=== PATIENT | female | born 1975 | race Hispanic/Latino ===

== ENCOUNTER 2019-08-22 15:37 | Emergency (ER) | payer BC, OTHER ==
[2019-08-22 16:23] LABS: Absolute Lymphocytes (CBC) 1.5 K/uL (0.7-4.9); Basophils % 0.8 % (0-1.3); Hematocrit 41.8 % (36.0-45.0); Lymphocytes % 16.1 % (15.3-44.8); MPV 7.9 fL (7.6-11.3); RBC Red Blood Cell Count 4.56 M/uL (3.86-4.86)
[2019-08-22 16:29] LABS: Albumin 4.1 g/dL (3.4-5.0); Bilirubin Direct 0.1 mg/dL (0-0.2); Bilirubin Total 0.4 mg/dL (0.2-1.0); Potassium 3.2 mmol/L (3.5-5.1); Protein, Total 8.3 g/dL (6.4-8.2)
[2019-08-22 16:40] LABS: Urine Blood 1+ (NEG); Urine Glucose NEGATIVE (NEG); Urine Protein NEGATIVE (NEG)
--- NOTE | 2019-08-22 16:57 | RAD REPORT ---
EXAM DESCRIPTION: CT - Stone Protocol - 08/22/2019 4:31 pm CLINICAL HISTORY: FLANK PAIN COMPARISON: Abdomen Pelvis W Contrast dated 04/19/2016 TECHNIQUE: Axial 5 mm thick images were obtained without oral or IV contrast. The [id number] span s the entirety of the system including uppermost abdomen and lung bases. All CT scans are performed using dose optimization technique as appropriate and may include automated exposure control or mA/KV adjustment according to patient size. FINDINGS: Moderate right-sided hydronephrosis is present. The patient has an obstructing 8 mm right UVJ calculus. Within the dilated right ureter in the right mid pelvis there is a cluster of 4 calcifi cations ranging from 2-5 mm in size. These are approximately 5 cm from the UVJ. No left-sided hydrone phrosis. Patient has numerous bilateral calyx and pyramid calcifications 2-6 mm in size. No suspiciou s renal masses. Isodense masses and pyelonephritis are not excluded on a stone protocol CT scan. No s ignificant adrenal finding. No urinary bladder suspicious finding. Uterus is absent. Ovaries are abse nt or obscured by abutting isodense small bowel loops. Imaged portions of the liver, spleen and pancreas show no suspicious findings on non-contrast imaging . No gallbladder or biliary tree abnormality identified. No suspicious bowel findings. No acute GI process identified. No appendicitis findings. No mass or bulky lymphadenopathy. Patient has a 2.6 centimeter supraumbilical fat only hernia with a 12 millimeter neck. No free air, free fluid or inflammatory stranding. No significant bony abnormality. IMPRESSION: Right hydronephrosis up to moderate in severity secondary to an 8 mm obstructing calculu s at the UVJ. Patient also has a cluster of 4 calcifications in the distal right ureter ranging 2-5 m m in size. These are approximately 5 cm from the UVJ. Patient has additional numerous calyx and pyramid calculi 2-6 mm in size in both kidneys. Isodense masses and pyelonephritis are not excluded on stone protocol technique.
[2019-08-22] MEDS ORDERED: TAMSULOSIN 0.4 MG SR CAP ONE (17:11)
[2019-08-22] MEDS ORDERED: Magnesium Sulfate 2gm IVPB 2 G/50 ML BAG IV ONE (17:11)
[2019-08-22] MEDS ORDERED: KETOROLAC 30 MG/ML INJ ONE (17:11)
[2019-08-22] MEDS ORDERED: POTASSIUM CL SA 10 MEQ TAB PO ONE (17:11)
--- NOTE | 2019-08-22 17:33 | ER ---
Nurse's Notes [facility] Name: Minda Monsalve Age: 44 yrs Sex: Female : 1975 Arrival Date: 08/22/2019 Time: 15:38 Bed 14 Private MD: Diagnosis: Calculus of kidney and ureter Presentation: 08/21 16:00 Chief complaint: Patient states: Right flank pain x 1 week, reports N/V. Denies fever, jl7 cough, SOB. Coronavirus screen: Proceed with normal triage. Patient denies a cough. Patient denies shortness of breath or difficulty breathing. Patient denies measured and/or subjective temperature greater than 100.4F prior to today's visit. Patient denies travel on a cruise ship or to a country the [facility] currently lists as an affected area. Patient denies contact with known and/or suspected case of COVID-19. Ebola Screen: No symptoms or risks identified at this time. Initial Sepsis Screen: Does the patient meet any 2 criteria? No. Patient's initial sepsis screen is negative. Does the patient have a suspected source of infection? No. Patient's initial sepsis screen is negative. Risk Assessment: Do you want to hurt yourself or someone else? Patient reports no desire to harm self or others. Onset of symptoms was August 15, 2019. 16:00 Method Of Arrival: Ambulatory jl7 16:00 Acuity: JACINTO 3 jl7 Triage Assessment: 16:19 General: Appears in no apparent distress. uncomfortable, Behavior is calm, cooperative, jl7 appropriate for age. Pain: Complains of pain in right flank Pain radiates to right lower quadrant Pain currently is 0 out of 10 on a pain scale. at worst was 10 out of 10 on a pain scale. Pain began x 1 week. Neuro: Level of Consciousness is awake, alert, obeys commands, Oriented to person, place, time, situation. Cardiovascular: Patient's skin is warm and dry. Respiratory: Airway is patent Respiratory effort is even, unlabored, Respiratory pattern is regular, symmetrical. GI: Reports nausea, vomiting. : Reports pain in right flank(s). Derm: Skin is pink, warm \T\ dry. 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 - Social history:: Smoking status: Patient denies any tobacco usage or history of. Screenin:23 Abuse screen: Denies threats or abuse. Denies injuries from another. Nutritional jl7 screening: No deficits noted. Tuberculosis screening: No symptoms or risk factors identified. Fall Risk IV access (20 points). Total Covarrubias Fall Scale indicates No Risk (0-24 pts). Assessment: 16:23 General: See triage assessment. jl7 17:18 Reassessment: Patient appears in no apparent distress at this time. No changes from 7 previously documented assessment. Patient and/or family updated on plan of care and expected duration. Pain level reassessed. Patient is alert, oriented x 3, equal unlabored respirations, skin warm/dry/pink. 17:30 Reassessment: Pt will be discharged once medication is done infusing. jl7 Vital Signs: 16:00 BP 146 / 92; Pulse 69; Resp 17 S; Pulse Ox 100% on R/A; Weight 71.67 kg (R); Height 5 jl7 ft. 3 in. (160.02 cm) (R); Pain 0/10; 17:18 BP 140 / 91; Pulse 69; Resp 16; Pulse Ox 100% ; jl7 16:00 Body Mass Index 27.99 (71.67 kg, 160.02 cm) jl7 ED Course: 15:38 Patient arrived in ED. fj1 15:41 Sil De La Rosa FNP-C is PHCP. kb 15:41 Bruce Garcia MD is Attending Physician. kb 16:10 Initial lab(s) drawn, by nv, sent to lab. Inserted saline lock: 20 gauge in left jl7 antecubital area, using aseptic technique. Blood collected. 16:14 Clarita Millard, STEPHIE is Primary Nurse. jl7 16:18 Triage completed. jl7 16:19 Arm band placed on right wrist. jl7 16:23 Patient has correct armband on for positive identification. Placed in gown. Bed in low jl7 position. Call light in reach. Side rails up X 1. Pulse ox on. NIBP on. Warm blanket given. 16:31 CT Stone Protocol In Process Unspecified. EDMS 17:33 Cindy Adame MD is Referral Physician. kb 18:23 No provider procedures requiring assistance completed. IV discontinued, intact, jl7 bleeding controlled, No redness/swelling at site. Pressure dressing applied. Administered Medications: 17:15 Drug: TORadol - Ketorolac 15 mg Route: IVP; Site: left antecubital; jl7 17:45 Follow up: Response: No adverse reaction; Pain is decreased jl7 17:16 Drug: Potassium Chloride 40 mEq Route: PO; jl7 18:00 Follow up: Response: No adverse reaction jl7 17:17 Drug: Magnesium Sulfate 2 grams Route: IVPB; Infused Over: 1 hrs; Site: left [facility] er antecubital; 18:17 Follow up: Response: No adverse reaction; IV Status: Completed infusion jl7 17:17 Drug: Flomax 0.4 mg Route: PO; jl7 18:00 Follow up: Response: No adverse reaction jl Outcome: 17:33 Discharge ordered by MD. kb 18:23 Discharged to home ambulatory. jl7 18:23 Condition: stable 18:23 Discharge instructions given to patient, family, Instructed on discharge instructions, follow up and referral plans. medication usage, Demonstrated understanding of instructions, follow-up care, medications, Prescriptions given X 3. 18:24 Patient left the ED. jl7 Signatures: Dispatcher [employer] EDMS Sil De La Rosa, Clarita Grayson RN RN jl7 Tom Chavez fj1
--- NOTE | 2019-08-22 17:33 | EDPHYS ---
Physician Documentation [facility] Name: Minda Monsalve Age: 44 yrs Sex: Female : 1975 Arrival Date: 08/22/2019 Time: 15:38 Bed 14 Private MD: ED Physician Bruce Garcia HPI: 08/21 16:41 This 44 yrs old Female presents to ER via Ambulatory with complaints of kb Possible Kidney Stone. 16:42 The patient complains of pain in the right flank. The pain does not radiate. Onset: The kb symptoms/episode began/occurred 1 week(s) ago. Modifying factors: The symptoms are alleviated by nothing. the symptoms are aggravated by nothing. Associated signs and symptoms: Pertinent positives: dysuria. Severity of pain: At its worst the pain was moderate in the emergency department the pain is unchanged. The patient has not experienced similar symptoms in the past. The patient has not recently seen a physician. Pt states "I've been dealing with kidney stones for a week.". 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 - Social history:: Smoking status: Patient denies any tobacco usage or history of. ROS: 16:38 Constitutional: Negative for fever, chills, and weight loss, Cardiovascular: Negative kb for chest pain, palpitations, and edema, Respiratory: Negative for shortness of breath, cough, wheezing, and pleuritic chest pain, MS/Extremity: Negative for injury and deformity, Skin: Negative for injury, rash, and discoloration, Neuro: Negative for headache, weakness, numbness, tingling, and seizure. 16:38 Abdomen/GI: Positive for abdominal pain, Negative for nausea, vomiting, and diarrhea, constipation. 16:38 : Positive for urinary symptoms, flank pain, burning with urination. Exam: 16:38 Constitutional: This is a well developed, well nourished patient who is awake, alert, kb and in no acute distress. Head/Face: Normocephalic, atraumatic. Neck: Trachea midline, no thyromegaly or masses palpated, and no cervical lymphadenopathy. Supple, full range of motion without nuchal rigidity, or vertebral point tenderness. No Meningismus. Chest/axilla: Normal chest wall appearance and motion. Nontender with no deformity. No lesions are appreciated. Cardiovascular: Regular rate and rhythm with a normal S1 and S2. No gallops, murmurs, or rubs. Normal PMI, no JVD. No pulse deficits. Respiratory: Lungs have equal breath sounds bilaterally, clear to auscultation and percussion. No rales, rhonchi or wheezes noted. No increased work of breathing, no retractions or nasal flaring. Skin: Warm, dry with normal turgor. Normal color with no rashes, no lesions, and no evidence of cellulitis. MS/ Extremity: Pulses equal, no cyanosis. Neurovascular intact. Full, normal range of motion. Neuro: Awake and alert, GCS 15, oriented to person, place, time, and situation. Cranial nerves II-XII grossly intact. Motor strength 5/5 in all extremities. Sensory grossly intact. Cerebellar exam normal. Normal gait. 16:38 Abdomen/GI: Inspection: abdomen appears normal, Bowel sounds: normal, in all quadrants, Palpation: soft, in all quadrants, moderate abdominal tenderness, in the suprapubic area, right upper quadrant and right lower quadrant. 16:38 Back: CVA tenderness, that is mild, is noted on the right. Vital Signs: 16:00 BP 146 / 92; Pulse 69; Resp 17 S; Pulse Ox 100% on R/A; Weight 71.67 kg (R); Height 5 jl7 ft. 3 in. (160.02 cm) (R); Pain 0/10; 17:18 BP 140 / 91; Pulse 69; Resp 16; Pulse Ox 100% ; jl7 16:00 Body Mass Index 27.99 (71.67 kg, 160.02 cm) jl7 MDM: 15:49 Patient medically screened. kb 16:37 Data reviewed: vital signs, nurses notes. Data interpreted: Pulse oximetry: on room air kb is 100 %. Interpretation: normal. 17:24 Counseling: I had a detailed discussion with the patient and/or guardian regarding: the kb historical points, exam findings, and any diagnostic results supporting the discharge/admit diagnosis, lab results, radiology results, the need for outpatient follow up, a urologist, to return to the emergency department if symptoms worsen or persist or if there are any questions or concerns that arise at home. ED course: Pt's pain is controlled at this time. Pt has hydrocodone to take at home for pain. Pt was also prescribed flomax at the start of the symptoms so I instructed her to continue that and to call Dr Adame's office tomorrow to schedule a follow up appt. Pt to return for worsening pain or concerns. Verbal understanding of all instructions received. Pt in agreement with plan of care. 08/21 15:57 Order name: Basic Metabolic Panel; Complete Time: 16:33 kb 08/21 15:57 Order name: CBC with Diff; Complete Time: 16:29 kb 08/21 15:57 Order name: Hepatic Function; Complete Time: 16:33 kb 08/21 15:57 Order name: Lipase; Complete Time: 16:33 kb 08/21 16:11 Order name: Urine Dipstick--Ancillary (enter results); Complete Time: 16:43 bd 08/21 16:11 Order name: Urine --Ancillary (enter results); Complete Time: 16:43 bd 08/21 15:57 Order name: IV Saline Lock; Complete Time: 16:24 kb 08/21 15:57 Order name: Labs collected and sent; Complete Time: 16:24 kb 08/21 15:57 Order name: Urine Dipstick-Ancillary (obtain specimen); Complete Time: 16:24 kb 08/21 15:57 Order name: CT Stone Protocol; Complete Time: 16:59 kb Administered Medications: 17:15 Drug: TORadol - Ketorolac 15 mg Route: IVP; Site: left antecubital; jl7 17:45 Follow up: Response: No adverse reaction; Pain is decreased jl7 17:16 Drug: Potassium Chloride 40 mEq Route: PO; jl7 18:00 Follow up: Response: No adverse reaction 7 17:17 Drug: Magnesium Sulfate 2 grams Route: IVPB; Infused Over: 1 hrs; Site: left jl7 antecubital; 18:17 Follow up: Response: No adverse reaction; IV Status: Completed infusion 7 17:17 Drug: Flomax 0.4 mg Route: PO; jl7 18:00 Follow up: Response: No adverse reaction jl7 Disposition: 08/22 13:58 Co-signature as Attending Physician, Bruce Garcia MD I agree with the assessment and laisha plan of care. Disposition: 08/22/19 17:33 Discharged to Home. Impression: Calculus of kidney and ureter. - Condition is Stable. - Discharge Instructions: Kidney Stones, [id number], Dietary Guidelines to Help Prevent Kidney Stones. - Prescriptions for Zofran 4 mg Oral Tablet - take 1 tablet by ORAL route every 6 hours As needed; 20 tablet. Diclofenac Sodium 75 mg Oral Tablet, Delayed Release (E.C.) - take 1 tablet by ORAL route 2 times per day As needed; 30 tablet. Macrobid 100 mg Oral Capsule - take 1 capsule by ORAL route every 12 hours for 7 days; 14 capsule. - Medication Reconciliation Form, Thank You Letter, Antibiotic Education, Prescription Opioid Use form. - Follow up: Emergency Department; When: As needed; Reason: Worsening of condition. Follow up: Cindy Adame MD; When: Tomorrow; Reason: Recheck today's complaints, Continuance of care, Re-evaluation by your physician. Signatures: Dispatcher [employer] EDMS Sil De La Rosa, MONOTYPE KEYBOARD OPERATOR-C MONOTYPE KEYBOARD OPERATOR-Bruce Alfonso MD MD cha Leal, Jahala, RN RN jl7 Corrections: (The following items were deleted from the chart) 08/21 18:24 17:33 08/22/2019 17:33 Discharged to Home. Impression: Calculus of kidney and ureter. jl7 Condition is Stable. Forms are Medication Reconciliation Form, Thank You Letter, Antibiotic Education, Prescription Opioid Use. Follow up: Emergency Department; When: As needed; Reason: Worsening of condition. Follow up: Cindy Adame; When: Tomorrow; Reason: Recheck today's complaints, Continuance of care, Re-evaluation by your physician. kb
[2019-08-22 18:37] VITALS: O2SAT 100
[2019-08-22 18:42] VITALS: BP 140/91
== END 2019-08-22 18:24 | disposition home or self-care (01) ==
LOC: ER 15:37
DX: N20.2 Calculus of kidney with calculus of ureter (principal); G40.909 Epilepsy, unspecified, not intractable, without status epilepticus; Z88.5 Allergy status to narcotic agent
CPT/HCPCS: 85025; 80048; 36415; 81025; 80076; 81003; 83690; 76377; 74176; J3475; 96365; 96375; 99284

== ENCOUNTER 2021-02-09 21:13 | Emergency (ER) | payer OTHER, SELFPAY ==
[2021-02-09 21:39] LABS: Urine Blood 1+ (Negative); Urine Glucose Negative (Negative); Urine Protein Negative (Negative); Urine Specific Gravity 1.025 (1.005-1.030)
[2021-02-09 22:20] LABS: Absolute Lymphocytes (CBC) 1.4 K/uL (0.7-4.9); Basophils % 0.9 % (0-1.3); Lymphocytes % 20.1 % (15.3-44.8); MPV 7.6 fL (7.6-11.3); RBC Red Blood Cell Count 4.63 M/uL (3.86-4.86)
[2021-02-09] MEDS ORDERED: MORPHINE 4 MG/ML SYR ONE (22:24)
[2021-02-09] MEDS ORDERED: NA CHLORIDE 0.9% 1,000 ML ONE (22:25)
[2021-02-09] MEDS ORDERED: ONDANSETRON 4 MG/2 ML VIAL ONE (22:25)
[2021-02-09 22:45] LABS: Urine Bacteria >50 /HPF (<20); Urine Mucus 1+ /HPF (NONE SEEN)
[2021-02-09 22:47] LABS: ALT/SGPT 25 U/L (12-78); AST/SGOT 10 U/L (15-37); Albumin 4.2 g/dL (3.4-5.0); Alkaline Phosphatase 83 U/L (45-117); BUN Blood Urea Nitrogen 10 mg/dL (7-18); Bicarbonate 26 mmol/L (21-32); Bilirubin Direct < 0.1 mg/dL (0-0.2); Bilirubin Total 0.3 mg/dL (0.2-1.0); Glucose Level 109 mg/dL (74-106); Lipase 243 U/L (73-393); Potassium 3.4 mmol/L (3.5-5.1); Protein, Total 7.7 g/dL (6.4-8.2); Sodium Level 142 mmol/L (136-145)
[2021-02-09 23:18] LABS: Urine Blood 1+ (Negative); Urine Glucose NEGATIVE (Negative); Urine Protein NEGATIVE (Negative); Urine Specific Gravity 1.025 (1.005-1.030)
[2021-02-09] MEDS ORDERED: CEFTRIAXONE 1000 MG/VIAL ONE (23:31)
[2021-02-10] MEDS ORDERED: Magnesium Sulfate 2gm IVPB 2 G/50 ML BAG IV ONE (01:03)
[2021-02-10] MEDS ORDERED: POTASSIUM 25 MEQ EFFERV TAB ONE (01:03)
[2021-02-10] MEDS ORDERED: TAMSULOSIN 0.4 MG SR CAP ONE (01:03)
--- NOTE | 2021-02-10 01:38 | EDPHYS ---
Physician Documentation [facility] Name: Minda Monsalve Age: 45 yrs Sex: Female : 1975 Arrival Date: 02/09/2021 Time: 21:17 Bed 16 Private MD: ED Physician Moris Angeles HPI: 02/09 21:50 This 45 yrs old Female presents to ER via Ambulatory with complaints of cp Vomiting, Possible Kidney Stone. 21:50 The patient presents to the emergency department with nausea, that is moderate. Onset: cp The symptoms/episode began/occurred today. Possible causes: kidney stone. Associated signs and symptoms: Pertinent positives: abdominal pain, Pertinent negatives: constipation, diarrhea, fever. Severity of symptoms: in the emergency department the symptoms are unchanged despite home interventions. 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 - Social history:: Smoking status: Patient denies any tobacco usage or history of. ROS: 21:55 Constitutional: Negative for body aches, chills, fever. cp 21:55 Eyes: Negative for injury, pain, redness, and discharge. cp 21:55 Cardiovascular: Negative for chest pain. 21:55 Respiratory: Negative for cough, shortness of breath, wheezing. 21:55 Abdomen/GI: Positive for abdominal pain, nausea, Negative for diarrhea, constipation, active vomiting. 21:55 Back: Positive for radiated pain, of the right low back. 21:55 Skin: Negative for rash. 21:55 Neuro: Negative for altered mental status, headache, weakness. 21:55 All other systems are negative. Exam: 22:00 Constitutional: The patient appears in no acute distress, alert, awake, non-toxic, well cp developed, well nourished, uncomfortable. 22:00 Head/Face: Normocephalic, atraumatic. cp 22:00 Eyes: Periorbital structures: appear normal, Conjunctiva: normal, no exudate, no injection, Sclera: no appreciated abnormality, Lids and lashes: appear normal, bilaterally. 22:00 ENT: External ear(s): are unremarkable, Nose: is normal, Mouth: Lips: moist, Oral mucosa: moist, Posterior pharynx: Airway: no evidence of obstruction, patent. 22:00 Chest/axilla: Inspection: normal. 22:00 Cardiovascular: Rate: normal. 22:00 Respiratory: the patient does not display signs of respiratory distress, Respirations: normal, no use of accessory muscles, no retractions, labored breathing, is not present. 22:00 Abdomen/GI: Inspection: abdomen appears normal, Bowel sounds: active, all quadrants, Palpation: soft, in all quadrants, moderate abdominal tenderness, in the posterior aspect of right lateral abdomen, anterior aspect of right lateral abdomen and right lower quadrant, rebound tenderness, is not appreciated, involuntary guarding, is not appreciated. 22:00 Back: pain, that is moderate, of the right low back. 22:00 Skin: no rash present. Vital Signs: 21:30 BP 147 / 91; Pulse 77; Resp 18; Temp 97.3; Pulse Ox 100% on R/A; Weight 74.84 kg (R); lp1 Height 5 ft. 3 in. (160.02 cm); Pain 10/10; 02/10 01:10 BP 112 / 76; Pulse 70; Resp 18; Temp 98.8(O); Pulse Ox 100% ; Pain 2/10; kc4 03:10 BP 120 / 72; Pulse 72; Resp 18; Temp 98.2(O); Pulse Ox 100% on R/A; Pain 0/10; kc4 02/09 21:30 Body Mass Index 29.23 (74.84 kg, 160.02 cm) lp1 [place] Coma Score: 01:11 Eye Response: spontaneous(4). Verbal Response: oriented(5). Motor Response: obeys kc4 commands(6). Total: 15. MDM: 02/09 21:36 Patient medically screened. cp 22:00 Differential diagnosis: gastritis, appendicitis, uti, kidney stone, pyelonephritis. cp 02/10 01:37 Data reviewed: vital signs, nurses notes, lab test result(s), radiologic studies, CT cp scan. 01:37 Counseling: I had a detailed discussion with the patient and/or guardian regarding: the cp historical points, exam findings, and any diagnostic results supporting the discharge/admit diagnosis, lab results, radiology results, to return to the emergency department if symptoms worsen or persist or if there are any questions or concerns that arise at home. Response to treatment: the patient's symptoms have markedly improved after treatment, Pain markedly improved and patient observed resting comfortably. 02/09 21:39 Order name: Urine Dipstick-Ancillary; Complete Time: 21:52 EDKY 02/09 22:51 Interpretation: Normal except: UBLD 1+; UESTR Trace. cp 02/09 21:39 Order name: Urine Microscopic Only; Complete Time: 22:51 lp1 02/09 22:51 Interpretation: Normal except: UWBC >50; URBC 5-10; UBACT >50. cp 02/09 21:40 Order name: Urine Dipstick--Ancillary (enter results); Complete Time: 00:04 lp1 02/09 21:54 Order name: Basic Metabolic Panel; Complete Time: 22:51 cp 02/09 22:52 Interpretation: Normal except: K 3.4; CL 110; GLUC 109; GFR 82. cp 02/09 21:54 Order name: CBC with Diff; Complete Time: 22:51 cp 02/09 22:52 Interpretation: Reviewed. 02/09 21:54 Order name: Hepatic Function; Complete Time: 22:51 cp 02/09 22:52 Interpretation: Normal except: AST 10. cp 02/09 21:54 Order name: Lipase; Complete Time: 22:51 cp 02/09 21:54 Order name: CT Stone Protocol 02/09 22:45 Order name: Urine Culture EDKY 02/09 21:39 Order name: Urine Dipstick-Ancillary (obtain specimen); Complete Time: 21:40 lp1 02/09 21:54 Order name: IV Saline Lock; Complete Time: 00:48 cp 02/09 21:54 Order name: Labs collected and sent; Complete Time: 00:48 cp Administered Medications: 02/09 22:06 Drug: NS 0.9% 1000 ml Route: IV; Rate: 1000 ml/hr; Site: left antecubital; 4 02/10 03:15 Follow up: IV Status: Completed infusion 4 02/09 22:06 Drug: Zofran (Ondansetron) 4 mg Route: IVP; Site: left antecubital; kc4 22:06 Drug: morphine 4 mg Route: IVP; Site: left antecubital; kc4 23:07 Drug: Rocephin (cefTRIAXone) 1 grams Route: IV; Rate: calculated rate; Site: left kc4 antecubital; 02/10 00:39 Drug: Magnesium Sulfate 1 grams Route: IVPB; Infused Over: 1 hrs; Site: left kc4 antecubital; 01:13 Follow up: Response: No adverse reaction; IV Status: Completed infusion kc4 00:40 Drug: Flomax (tamsulosin) 0.4 mg Route: PO; kc4 01:13 Follow up: Response: No adverse reaction kc4 00:40 Drug: Potassium Effervescent Tablet 50 mEq Route: PO; kc4 01:13 Follow up: Response: No adverse reaction kc4 Disposition: 02/11 01:34 Co-signature as Attending Physician, Moris Angeles MD. mh7 Disposition Summary: 02/10/21 01:38 Discharge Ordered Location: Home cp Problem: new cp Symptoms: have improved cp Condition: Stable cp Diagnosis - Calculus of kidney with calculus of ureter - Right cp Followup: cp - With: Chay Horner MD - When: 2 - 3 days - Reason: pain continues Discharge Instructions: - Discharge Summary Sheet cp - Kidney Stones cp - Renal Colic cp Forms: - Medication Reconciliation Form cp - Thank You Letter cp - Antibiotic Education cp - Prescription Opioid Use cp Prescriptions: - Flomax 0.4 mg Oral capsule - take 1 capsule by ORAL route once daily 1/2 hour following the same meal each cp day; 5 capsule; Refills: 0, Product Selection Permitted - Zofran 4 mg Oral Tablet - take 1 tablet by ORAL route every 12 hours As needed; 20 tablet; Refills: 0, cp Product Selection Permitted - Cipro 500 mg Oral Tablet - take 1 tablet by ORAL route every 12 hours for 7 days; 14 tablet; Refills: 0, cp Product Selection Permitted - Tramadol 50 mg Oral Tablet - take 1 tablet by ORAL route every 8 hours as needed; 12 tablet; Refills: 0, cp Product Selection Permitted Signatures: Dispatcher [facility] Daksha Ricardo RN RN lp1 rBuce Samson PA PA cp Moris Angeles MD MD 7 Mayuri Kruse 4
--- NOTE | 2021-02-10 01:38 | ER ---
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 Coronavirus screen: At this time, the client does not indicate any symptoms associated with coronavirus-19. Ebola Screen: No symptoms or risks identified at this time. Initial Sepsis Screen: Does the patient meet any 2 criteria? No. Patient's initial sepsis screen is negative. Does the patient have a suspected source of infection? No. Patient's initial sepsis screen is negative. Risk Assessment: Do you want to hurt yourself or someone else? Patient reports no desire to harm self or others. Onset of symptoms was February 09, 2021 at 19:00. 21:30 Method Of Arrival: Ambulatory lp1 21:30 Acuity: JACINTO 3 lp1 Triage Assessment: 23:30 GI: Bowel sounds present X 4 quads. Abd is soft Reports lower abdominal pain, upper kc4 abdominal pain, intolerance of fluids, intolerance of food, nausea, Pain is 8 out of 10 on a pain scale. vomiting. 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 - Social history:: Smoking status: Patient denies any tobacco usage or history of. Screenin:32 Abuse screen: Denies threats or abuse. Denies injuries from another. Nutritional lp1 screening: No deficits noted. Tuberculosis screening: No symptoms or risk factors identified. Fall Risk None identified. Assessment: 02/10 01:08 General: Appears in no apparent distress. Behavior is calm, cooperative, appropriate kc4 for age. Pain: Complains of pain in abdomen Pain does not radiate. Pain currently is 4 out of 10 on a pain scale. at worst was 8 out of 10 on a pain scale. level that patient reports is acceptable is 2 out of 10 on a pain scale. Quality of pain is described as piercing, Pain began 4 hours ago. Is intermittent, Alleviated by medications. Neuro: No deficits noted. Cardiovascular: No deficits noted. Respiratory: No deficits noted. GI: Abdomen is round Bowel sounds present X 4 quads. Abd is soft X 4 quads. : No deficits noted. EENT: No deficits noted. Derm: No deficits noted. Musculoskeletal: No deficits noted. No signs and/or symptoms reported regarding the musculoskeletal system. Vital Signs: 02/09 21:30 BP 147 / 91; Pulse 77; Resp 18; Temp 97.3; Pulse Ox 100% on R/A; Weight 74.84 kg (R); lp1 Height 5 ft. 3 in. (160.02 cm); Pain 10/10; 02/10 01:10 BP 112 / 76; Pulse 70; Resp 18; Temp 98.8(O); Pulse Ox 100% ; Pain 2/10; kc4 03:10 BP 120 / 72; Pulse 72; Resp 18; Temp 98.2(O); Pulse Ox 100% on R/A; Pain 0/10; kc4 02/09 21:30 Body Mass Index 29.23 (74.84 kg, 160.02 cm) lp1 Unruly Coma Score: 01:11 Eye Response: spontaneous(4). Verbal Response: oriented(5). Motor Response: obeys kc4 commands(6). Total: 15. ED Course: 02/09 21:17 Patient arrived in ED. bp1 21:30 Bruce Samson PA is PHCP. cp 21:30 Moris Angeles MD is Attending Physician. cp 21:31 Triage completed. lp1 21:31 Arm band placed on. lp1 21:51 Mayuri Kruse is Primary Nurse. kc4 22:00 No provider procedures requiring assistance completed. Inserted saline lock: 20 gauge kc4 in left antecubital area, using aseptic technique. 22:19 Basic Metabolic Panel Sent. kc4 22:19 CBC with Diff Sent. kc4 22:19 Hepatic Function Sent. kc4 22:19 Lipase Sent. kc4 22:19 Urine Dipstick--Ancillary (enter results) Sent. kc4 22:19 Urine Microscopic Only Sent. kc4 22:56 CT Stone Protocol In Process Unspecified. EDMS 02/10 01:11 Patient has correct armband on for positive identification. Placed in gown. Bed in low kc4 position. Call light in reach. Side rails up X 1. 01:37 Chay Horner MD is Referral Physician. cp 03:14 IV discontinued, intact, bleeding controlled, No redness/swelling at site. Pressure kc4 dressing applied. Administered Medications: 02/09 22:06 Drug: NS 0.9% 1000 ml Route: IV; Rate: 1000 ml/hr; Site: left antecubital; kc4 02/10 03:15 Follow up: IV Status: Completed infusion kc4 02/09 22:06 Drug: Zofran (Ondansetron) 4 mg Route: IVP; Site: left antecubital; kc4 22:06 Drug: morphine 4 mg Route: IVP; Site: left antecubital; kc4 23:07 Drug: Rocephin (cefTRIAXone) 1 grams Route: IV; Rate: calculated rate; Site: left 4 antecubital; 02/10 00:39 Drug: Magnesium Sulfate 1 grams Route: IVPB; Infused Over: 1 hrs; Site: left 4 antecubital; 01:13 Follow up: Response: No adverse reaction; IV Status: Completed infusion kc4 00:40 Drug: Flomax (tamsulosin) 0.4 mg Route: PO; kc4 01:13 Follow up: Response: No adverse reaction kc4 00:40 Drug: Potassium Effervescent Tablet 50 mEq Route: PO; kc4 01:13 Follow up: Response: No adverse reaction kc4 Outcome: 01:38 Discharge ordered by MD. cp 03:11 Discharged to home ambulatory. kc4 03:11 Condition: improved 03:11 Discharge instructions given to patient, Instructed on discharge instructions, follow up and referral plans. medication usage, Demonstrated understanding of instructions, follow-up care, medications, Prescriptions given X 4. 03:15 Patient left the ED. kc4 Signatures: [facility] Daksha Epps RN RN lp1 Bruce Samson PA PA cp [place], Brittany bp1 Chuman, Kourtney kc4
[2021-02-10 03:38] VITALS: O2SAT 100
[2021-02-10 03:41] VITALS: BP 120/72; TEMP 98.2
--- NOTE | 2021-02-11 12:05 | RAD REPORT ---
EXAM DESCRIPTION: CT - Stone Protocol - 02/10/2021 6:01 am CLINICAL HISTORY: 45 years Female FLANK PAIN TECHNIQUE: Contiguous axial images obtained through the abdomen and pelvis without IV contrast. Mia nal and sagittal reformatted images provided. This CT exam was performed according to our departmental dose-optimization program, which includes on e or more of the following dose reduction techniques: automated exposure control, adjustment of the m A and/or kV according to patient size, and/or use of iterative reconstruction technique. COMPARISON: 08/22/2019 FINDINGS: Again seen is bilateral nephrolithiasis, with stones measuring up to 6 mm on the right and 7 mm on the left. There is moderate right hydroureteronephrosis due to a 5 x 7 mm calculus at the ri ght vesicoureteral junction. More proximally, there is a 5 mm calculus within or adjacent to the post erior margin of the right distal ureter. No other ureteral or bladder calculi. No left-sided hydronep hrosis. Minimal bibasilar atelectasis. The unenhanced liver, biliary tree, gallbladder, pancreas, spleen, and adrenal glands are normal. Prior hysterectomy. There is no bowel inflammation, obstruction, free intraperitoneal air, or ascites. The appendix is no rmal. There are no aggressive osseous lesions. Small fat-containing supraumbilical and umbilical hernias ar e stable and do not appear inflamed. IMPRESSION: Bilateral nephrolithiasis. Moderate right hydroureteronephrosis due to a 5 x 7 mm calcul us at the right vesicoureteral junction. 5 mm calculus within or adjacent to the posterior margin of the right distal ureter. No other acute findings. Electronically signed by: Neihsa Arellano MD 02/09/2021 11:11 PM CDT Due to temporary technical issues with the PACS/Fluency reporting system, reports are being signed by the in house radiologist without review as a courtesy to ensure prompt reporting. The interpreting r adiologist is fully responsible for the content of the report.
== END 2021-02-10 03:15 | disposition home or self-care (01) ==
LOC: ER 21:13
DX: N20.2 Calculus of kidney with calculus of ureter (principal); Z88.6 Allergy status to analgesic agent; R56.9 Unspecified convulsions
CPT/HCPCS: 36415; 74176; 76377; 80048; 80076; 81003; 81015; 83690; 85025; 87086; 87088; 96361; 96365; 96375; 99284; J2405; J3475; J7030

== ENCOUNTER 2021-08-15 11:50 | Emergency (ER) | payer OTHER ==
--- OUTSIDE RECORDS SUMMARY | 2021-08-15 11:54 | XMS REPORT | Continuity of Care Document ---
:1975 Author Organization [facility] t Address [address] [place] [address] Care Team Providers Name Role Phone Chisholm Attending Clinician Unavailable Lab, Fam Pob I Attending Clinician Unavailable Jemma KOSHER DIETARY SERVICE SUPERVISOR Attending Clinician GREEN Attending Clinician Unavailable Doctor Unassigned, Name Attending Clinician Unavailable Pcp, Does Not Have A Attending Clinician Isreal TREVINO, H Attending Clinician Anene KOSHER DIETARY SERVICE SUPERVISOR Attending Clinician ANENE Attending Clinician Unavailable Payers Payer Name Policy Type Policy Number Effective Date Expiration Date S ource Problems Condition Condition Condition Status Onset Resolution Last Treating Co mments Source Name Details Category Date Date Treatment Clinician Date Dyspareuni Dyspareuni Disease Active M D a a 02-05 Anderso 00:00: n 00 Epilepsy Epilepsy Disease Active 02-04 Anderso 00:00: n 00 Leiomyoma Leiomyoma Disease Active of uterus of uterus 02-04 Gonzalo rso 00:00: n 00 Seizure Seizure Disease Active [facility] disorder disorder 6-29 ity of 00:00: [place] 00 Medical Branch Encounter Encounter Disease Active Overview: Univers for for 2-13 ICD10 ity of routine routine 00:00: Diagnosis [place] gynecologi gynecologi 00 Term Me dical mai mai Shift Foreman Branch examinatio examinatio Utility n n Family Family Disease Active Univers planning, planning, 2-13 ity of IUD IUD 00:00: [place] (intrauter (intrauter 00 Me dical ine ine Branch device) device) check/rein check/rein sertion/re sertion/re moval moval Elevated Elevated Disease Active Unive rs blood blood 2-13 ity of pressure pressure 00:00: [place] reading reading [address] [place] [address] Seizure Seizure Problem Active [facility] Kidney Kidney Diagnosis Active [facility] stones stones [facility] Allergies, Adverse Reactions, Alerts Allergy Allergy Status Severity Reaction(s) Onset Inactive Treating Comm ents Source Name Type Date Date Clinician NO KNOWN Drug Active Univers ALLERGIE Class ity of S [facility] Family History Family Member Diagnosis Comments Start Date Stop Date Source Maternal aunt Stomach cancer MD Gonzalo choudhury Social History Social Habit Start Date Stop Date Quantity Comments Source Exposure to Not sure [facility] (event) [place] Alcohol intake 2017-05-27 2017-05-27 Current drinker MD Kitty epps 00:00:00 00:00:00 of alcohol (finding) Tobacco use and 2017-02-04 2017-02-04 Smokeless tobacco MD Garcia exposure 00:00:00 00:00:00 non-user History of 2005-02-13 Current smoker MD Taz leiva tobacco use 00:00:00 Sex [birth year] MD Garcias on 00:00:00 00:00:00 Smoking Status Start Date Stop Date Source Ex-smoker 2017-02-04 00:00:00 2017-02-04 00:00:00 MD [place] son Never smoker [facility] Medications Ordered Filled Start Stop Current Ordering Indication Dosage Frequency Signature Comments Components Source Medication Medication Date Date Medication? Clinician (SIG) Name Name ibuprofen Yes 600mg Take 600 MD (ADVIL,MOTR 2-15 mg by [place]) 600 mg 09:15: mouth n tablet 41 every 8 (eight) hours as needed. traMADol 2016-05 Yes Postoperati 50mg Take 1 MD (ULTRAM) 50 2-27 ve pain tablet (50 Anderso mg tablet 00:00: mg) by n 00 mouth every 6 (six) hours as needed for moderate pain. topiramate Yes 2{tbl} Take 2 MD (TOPAMAX) 9-21 tablets by Gonzalo rso 50 mg 00:00: mouth n tablet 00 twice daily. topiramate Yes 50mg Take 50 mg U nivers (TOPAMAX) 6-27 by mouth 2 ity of 50 mg 19:18: (two) [place] tablet 00 times Medical daily. Branch folic acid Yes 400ug Take 400 Un leonora (FOLVITE) 6-27 mcg by ity of 400 mcg 19:18: mouth [place] tablet 00 daily. Medical Branch topiramate Yes 50mg Take 50 mg U nivers (TOPAMAX) 6-27 by mouth 2 ity of 50 mg 19:18: (two) [place] tablet 00 times Medical daily. Branch folic acid Yes 400ug Take 400 Un leonora (FOLVITE) 6-27 mcg by ity of 400 mcg 19:18: mouth [place] tablet 00 daily. Medical Branch topiramate Yes 50mg Take 50 mg U nivers (TOPAMAX) 6-27 by mouth 2 ity of 50 mg 19:18: (two) [place] tablet 00 times Medical daily. Branch folic acid Yes 400ug Take 400 Un leonora (FOLVITE) 6-27 mcg by ity of 400 mcg 19:18: mouth [place] tablet 00 daily. Medical Branch topiramate Yes 50mg Take 50 mg U nivers (TOPAMAX) 6-27 by mouth 2 ity of 50 mg 19:18: (two) [place] tablet 00 times Medical daily. Branch folic acid Yes 400ug Take 400 Un leonora (FOLVITE) 6-27 mcg by ity of 400 mcg 19:18: mouth [place] tablet 00 daily. Medical Branch topiramate Yes 50mg Take 50 mg U nivers (TOPAMAX) 6-27 by mouth 2 ity of 50 mg 19:18: (two) [place] tablet 00 times Medical daily. Branch folic acid Yes 400ug Take 400 Un leonora (FOLVITE) 6-27 mcg by ity of 400 mcg 19:18: mouth [place] tablet 00 daily. Medical Branch Topiramate Topiramate Yes Cassandra 1 tablet [facility] Immunizations Ordered Filled Immunization Date Status Comments [facility] e Immunization Name Name Td 2009-06-23 Completed [facility] 00:00:00 [facility] Td 2009-06-23 Completed University 00:00:00 [facility] Td 2009-06-23 Completed University 00:00:00 [facility] Td 2009-06-23 Completed University 00:00:00 [facility] Td 2009-06-23 Completed [facility] 00:00:00 [facility] Procedures Procedure Date / Time Performed Performing Clinician Sour e ASSIGNMENT OF BENEFITS 2020-09-09 23:24:43 Doctor Unassigned, No [facility] Name [facility] Plan of Care Planned Activity Planned Date Details Comments Source Future Scheduled Test 1980-07-15 00:00:00 COVID-19 Vaccination MD Garcia (1) [code = COVID-19 Vaccination (1)] Encounters Start End Encounter Admission Attending Care Care Encounter Source Date/Time Date/Time Type Type Clinicians Facility Department ID 2021-06-[address] [id number] 11:17:52 [place] [address] [facility] 2020-09-09 2020-09-09 Laboratory Lab, Adc Fam Pob I [facility] [id number] Univers 18:25:55 18:45:55 Only [facility] [id number] ity of [place] [id number] Mikey as Professio [phone] [address] Office Building One 2020-09-09 2020-09-09 Outpatient R [facility] [id number] Univers 18:20:00 18:20:00 [id number] ity [facility] 2020-09-09 2020-09-09 [id number] Univers 18:20:00 18:20:00 ANNA ity [facility] 2020-09-09 2020-09-09 Orders Doctor PEDRO [id number] Univers 00:00:00 00:00:00 Only UnassKIMBERLY crabtree [id number] ity of [facility] [id number] Mikey as [phone] [address] 2019-11-11 2019-11-11 Telephone [id number] Univers 00:00:00 00:00:00 Patient KIMBERLY [id number] it y of Does Not HOSP[place] [id number] [place] A [phone] [address] 2019-11-10 2019-11-10 Telephone PEDRO Bach [id number] Univers 00:00:00 00:00:00 Alex HARRIS [id number] i ty of [facility] [id number] Mikey as [id number] [address] 2019-11-09 2019-11-09 Laboratory Lab, Adc Fam Pob I [facility] [id number]. [id number] Univers 07:06:08 07:26:08 Only Grace Aguilara [facility] [id number] ity of [place] [id number] Mikey as Professio [phone] Ar dical [address] Office [address] One 2019-11-09 2019-11-09 Outpatient R MERYL [facility] [id number] Univers 07:00:00 07:00:00 ASIA ity [facility] 2019-11-02 2019-11-02 Outpatient R [facility] [id number] Univers 08:30:00 08:30:00 ity [facility] 2019-08-22 2019-08-22 [facility] [id number] 14:30:00 14:30:00 t Specialty/U [facility]Urology Clinic l Clinic Outpati ent Clinics Results This patient has no known results.
--- OUTSIDE RECORDS SUMMARY | 2021-08-15 11:54 | XMS REPORT | Clinical Summary ---
:1975 Author Organization [facility] MD [place] [facility] Address [address] [place] [address] Care Team Providers Name Role Phone Unavailable Primary Care Provider Unavailable Allergies Active Allergy Reactions Severity Noted Date Comments Hydrocodone-Acetaminophen Other (See Comments) 017 Seizures Medications Medication Sig Dispensed Refills Start Date End Date Status topiramate (TOPAMAX) 50 Take 2 tablets by 1 01/30/20 17 Active mg tablet mouth twice daily. traMADol (ULTRAM) 50 mg Take 1 tablet (50 30 tablet 0 05/06/20 17 Active tabletIndications: mg) by mouth Uterine leiomyoma, every 6 (six) Postoperative pain hours as needed for moderate pain. Additional Information Patient not taking. Reported on 06/25/2017 ibuprofen (ADVIL,MOTRIN) 600 mg tablet Take 600 mg by mouth every 8 0 Active (eight) hours as needed. Active Problems Problem Noted Date Dyspareunia 02/05/2017 Leiomyoma of uterus 02/04/2017 Epilepsy 02/04/2017 Surgical History Surgery Date Site/Laterality Comments BREAST LUMPECTOMY Right At age 22 Medical History Medical History Date Comments Migraine Seizure 1990 Controlled with topi ramate Renal stone 2015 Uterine leiomyoma Abnormal uterine bleeding unrelated to menstrual cycle Depressive disorder Anxiety Family History Medical History Relation Name Comments Stomach cancer Maternal Aunt maternal great a unt Relation Name Status Comments Maternal Aunt great aunt Social History Tobacco Use Types Packs/Day Years Used Date Former Smoker Cigarettes Quit: 02/14/20 05 Smokeless Tobacco: Never Used Qu it: 02/13/2005 Alcohol Use Standard Drinks/Week Comments Yes 0 (1 standard drink = 0.6 oz pure alcoho l) Sex Assigned at Date Recorded Not on file Obstetrics History Para Term AB IAB SAB Ectopic Multiple Living Live Births 3 2 2 1 1 2 Date Outcome GA Total Labor/2nd/3rd Weight Sex Delivery Anes PTL Barbra A 1 A5 Name Clin Labor Term Term SAB Last Filed Vital Signs Not on file Plan of Treatment Health Maintenance Due Date Last Done Comments COVID-19 Vaccination (1) 07/15/1980 Results Not on fileafter 08/15/2020 Insurance Payer Benefit Plan / Subscriber ID Effective Dates Phone Addre ss Type Group [employer] [place] POS [id number] 2016-Present [id number] [place] [address] ([address] [place] [phone] Minda Monsalve Personal/Family Self [address] [place] [address] (Home) [address] [place] [phone] Minda Monsalve Personal/Family Self [address] [place] [address] (Home) Road [address] [place] [phone]
[2021-08-15 13:11] LABS: Hematocrit 40.1 % (36.0-45.0); Lymphocytes % 22.4 % (15.3-44.8); MPV 7.6 fL (7.6-11.3); RBC Red Blood Cell Count 4.41 M/uL (3.86-4.86)
[2021-08-15 13:32] LABS: Urine Blood Trace-intact (Negative); Urine Glucose Negative (Negative); Urine Protein Negative (Negative); Urine pH 6.5 (5.0-7.0)
[2021-08-15 13:39] LABS: Bilirubin Total 0.4 mg/dL (0.2-1.0); Potassium 3.4 mmol/L (3.5-5.1); Protein, Total 7.2 g/dL (6.4-8.2)
[2021-08-15 13:51] LABS: Urine Bacteria NONE SEEN /HPF (<20); Urine RBC <5 /HPF (NONE SEEN)
--- NOTE | 2021-08-15 14:36 | RAD REPORT ---
EXAM DESCRIPTION: US - Abdomen Exam Limited - 08/15/2021 2:03 pm CLINICAL HISTORY: ABD PAIN COMPARISON: Stone Protocol dated 02/09/2021 FINDINGS: No gallstones, sludge or other abnormalities within the gallbladder lumen. There is no wal l thickening or pericholecystic fluid. No common duct stone or biliary tree dilatation identified. Common bile duct is upper normal at 7 mm. IMPRESSION: No gallbladder or biliary tree abnormality identified.
--- NOTE | 2021-08-15 14:44 | EDPHYS ---
Physician Documentation [facility] Name: Minda Monsalve Age: 46 yrs Sex: Female : 1975 Arrival Date: 08/15/2021 Time: 11:51 Bed 15 Private MD: ED Physician Tony Hernández HPI: 08/15 13:00 This 46 yrs old Female presents to ER via Ambulatory with complaints of cp Abdominal Pain - sharp. 13:00 The patient presents with abdominal pain mid right abdomen. Onset: The symptoms/episode cp began/occurred suddenly, at about 1030. The symptoms do not radiate. Associated signs and symptoms: none. The symptoms are described as sharp. Severity of pain: in the emergency department the pain has resolved and did so just prior to arrival. 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 - Social history:: Smoking status: Patient denies any tobacco usage or history of. ROS: 13:05 Constitutional: Negative for body aches, chills, fever, poor PO intake. cp 13:05 Eyes: Negative for injury, pain, redness, and discharge. cp 13:05 ENT: Negative for drainage from ear(s), ear pain, sore throat, difficulty swallowing, difficulty handling secretions. 13:05 Cardiovascular: Negative for chest pain, edema, palpitations. 13:05 Respiratory: Negative for cough, shortness of breath, wheezing. 13:05 Abdomen/GI: Positive for abdominal pain, Negative for vomiting, diarrhea, constipation. 13:05 Back: Negative for radiated pain. 13:05 : Negative for urinary symptoms. 13:05 Neuro: Negative for altered mental status, headache, weakness. 13:05 All other systems are negative. Exam: 13:10 Constitutional: The patient appears in no acute distress, alert, awake, cp non-diaphoretic, non-toxic, well developed, well nourished. 13:10 Head/Face: Normocephalic, atraumatic. cp 13:10 Eyes: Periorbital structures: appear normal, Conjunctiva: normal, no exudate, no injection, Sclera: no appreciated abnormality, Lids and lashes: appear normal, bilaterally. 13:10 ENT: External ear(s): are unremarkable, Nose: is normal, Mouth: Lips: moist, Oral mucosa: pink and intact, moist, Posterior pharynx: is normal, airway is patent, no erythema, no exudate. 13:10 Chest/axilla: Inspection: normal. 13:10 Cardiovascular: Rate: normal, Rhythm: regular. 13:10 Respiratory: the patient does not display signs of respiratory distress, Respirations: normal, no use of accessory muscles, no retractions, labored breathing, is not present, Breath sounds: are clear throughout, no decreased breath sounds, no stridor, no wheezing. 13:10 Abdomen/GI: Inspection: abdomen appears normal, Bowel sounds: active, all quadrants, Palpation: soft, in all quadrants, mild abdominal tenderness, in the right mid abdomen, rebound tenderness, is not appreciated, voluntary guarding, is not appreciated, involuntary guarding, is not appreciated. 13:10 Back: pain, is absent, ROM is normal. Vital Signs: 12:07 BP 144 / 94; Pulse 78; Resp 17; Temp 98.8(TE); Pulse Ox 100% on R/A; Weight 70.31 kg; ab2 Height 5 ft. 3 in. (160.02 cm); Pain 7/10; 14:30 BP 138 / 88; Pulse 80; Resp 16 S; Pulse Ox 99% on R/A; aa5 12:07 Body Mass Index 27.46 (70.31 kg, 160.02 cm) ab2 MDM: 12:39 Patient medically screened. cp 13:00 Differential diagnosis: appendicitis, bowel obstruction, cholecystitis, Cholelithiasis, cp non-specific abd pain, pancreatitis, Pyelonephritis, Ureterolithiasis, urinary tract infection. 14:43 Data reviewed: vital signs, nurses notes, lab test result(s), radiologic studies, cp ultrasound. 14:43 Counseling: I had a detailed discussion with the patient and/or guardian regarding: the cp historical points, exam findings, and any diagnostic results supporting the discharge/admit diagnosis, lab results, radiology results, to return to the emergency department if symptoms worsen or persist or if there are any questions or concerns that arise at home. Response to treatment: the patient's symptoms have markedly improved after treatment, and as a result, I will discharge patient. Special discussion: Based on the patient's Hx, exam, and Dx evaluation, there is no indication for emergent surgery or inpatient Tx. It is understood by the patient/guardian that if the Sx's persist or worsen they need to return immediately for re-evaluation. 08/15 12:49 Order name: CBC with Diff; Complete Time: 13:33 cp 08/15 12:49 Order name: CMP; Complete Time: 14:13 cp 08/15 14:13 Interpretation: Normal except: K 3.4; CL 110; GFR 84. cp 08/15 12:49 Order name: Lipase; Complete Time: 14:13 cp 08/15 12:49 Order name: Urine Microscopic Only; Complete Time: 14:13 cp 08/15 13:33 Order name: Urine Dipstick-Ancillary; Complete Time: 13:33 EDMS 08/15 14:13 Interpretation: Normal except: UBLD Trace-intact. cp 08/15 13:37 Order name: Urine --Ancillary (enter results); Complete Time: 14:13 em1 08/15 12:49 Order name: IV Saline Lock; Complete Time: 13:07 cp 08/15 12:49 Order name: Labs collected and sent; Complete Time: 13:07 cp 08/15 12:49 Order name: Urine Dipstick-Ancillary (obtain specimen); Complete Time: 13:34 cp 08/15 13:34 Order name: US Abdomen Limited: RUQ; Complete Time: 14:39 cp 08/15 14:40 Interpretation: Report reviewed. cp Administered Medications: 15:16 Drug: Potassium Effervescent Tablet 50 mEq Route: PO; aa5 15:16 Follow up: Response: Medication administered at discharge. aa5 Disposition Summary: 08/15/21 14:43 Discharge Ordered Location: Home cp Problem: new cp Symptoms: are resolved cp Condition: Stable cp Diagnosis - Abdominal pain, unspecified cp Followup: cp - With: Private Physician - When: 1 - 2 days - Reason: Worsening of condition Discharge Instructions: - Discharge Summary Sheet cp - Abdominal Pain, Adult cp Forms: - Medication Reconciliation Form cp - Thank You Letter cp - Antibiotic Education cp - Prescription Opioid Use cp Signatures: Dispatcher [facility] Latasha Mcconnell, RN RN aa5 Bruce Samson PA PA cp Bleininger, Alexis ab2
--- NOTE | 2021-08-15 14:44 | ER ---
Nurse's Notes [facility] Name: Minda Monsalve Age: 46 yrs Sex: Female : 1975 Arrival Date: 08/15/2021 Time: 11:51 Bed 15 Private MD: Diagnosis: Abdominal pain, unspecified Presentation: 08/15 12:07 Chief complaint: Patient states: "At like 1030 I got this intense pain in my stomach, I ab2 thought it was gas so I took a Tums but it didn't help. The pain was so bad I couldn't walk." Pt denies n/v/d. Coronavirus screen: Vaccine status: Patient reports receiving the 2nd dose of the covid vaccine. Client denies travel out of the [place] in the last 14 days. At this time, the client does not indicate any symptoms associated with coronavirus-19. Ebola Screen: Patient negative for fever greater than or equal to 101.5 degrees Fahrenheit, and additional compatible Ebola Virus Disease symptoms Patient denies exposure to infectious person. Patient denies travel to an Ebola-affected area in the 21 days before illness onset. No symptoms or risks identified at this time. Initial Sepsis Screen: Does the patient meet any 2 criteria? No. Patient's initial sepsis screen is negative. Does the patient have a suspected source of infection? No. Patient's initial sepsis screen is negative. Risk Assessment: Do you want to hurt yourself or someone else? Patient reports no desire to harm self or others. Onset of symptoms is unknown. 12:07 Method Of Arrival: Ambulatory ab2 12:07 Acuity: JACINTO 3 ab2 Triage Assessment: 12:10 General: Appears in no apparent distress. uncomfortable, Behavior is calm, cooperative, ab2 appropriate for age. Pain: Complains of pain in epigastric area and right upper quadrant Pain currently is 8 out of 10 on a pain scale. Neuro: Level of Consciousness is awake, alert, obeys commands, Oriented to person, place, time, situation, Appropriate for age Handbag Frames Inspector are equal bilaterally Moves all extremities. Gait is steady, Speech is normal, Facial symmetry appears normal. Cardiovascular: No deficits noted. Denies chest pain, shortness of breath, Patient's skin is warm and dry. Respiratory: Airway is patent Respiratory effort is even, unlabored, Respiratory pattern is regular, symmetrical. GI: Reports upper abdominal pain, bloating, cramping. 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 - Social history:: Smoking status: Patient denies any tobacco usage or history of. Screenin:00 Abuse screen: Denies threats or abuse. Nutritional screening: No deficits noted. aa5 Tuberculosis screening: No symptoms or risk factors identified. Fall Risk None identified. Assessment: 12:40 General: Appears comfortable, Behavior is calm, cooperative. Pain: Complains of pain in aa5 right upper quadrant Pain currently is 0 out of 10 on a pain scale. Quality of pain is described as sharp, Is lasting more than 1 hour. Neuro: Level of Consciousness is awake, alert, obeys commands, Oriented to person, place, time, situation. Cardiovascular: Heart tones S1 S2 present Rhythm is regular. Respiratory: Airway is patent Respiratory effort is even, unlabored, Respiratory pattern is regular, symmetrical. GI: Abdomen is round non-distended, Bowel sounds present X 4 quads. Abd is soft and non tender X 4 quads. Patient currently denies diarrhea, nausea, vomiting. : No signs and/or symptoms were reported regarding the genitourinary system. EENT: No signs and/or symptoms were reported regarding the EENT system. Derm: Skin is pink, warm \\T\\ dry. Musculoskeletal: Range of motion: intact in all extremities. 14:20 Reassessment: Patient is alert, oriented x 3, equal unlabored respirations, skin aa5 warm/dry/pink. Awaiting US results . 15:15 Reassessment: Patient is alert, oriented x 3, equal unlabored respirations, skin aa5 warm/dry/pink. Vital Signs: 12:07 BP 144 / 94; Pulse 78; Resp 17; Temp 98.8(TE); Pulse Ox 100% on R/A; Weight 70.31 kg; ab2 Height 5 ft. 3 in. (160.02 cm); Pain 7/10; 14:30 BP 138 / 88; Pulse 80; Resp 16 S; Pulse Ox 99% on R/A; aa5 12:07 Body Mass Index 27.46 (70.31 kg, 160.02 cm) ab2 ED Course: 11:51 Patient arrived in ED. am2 12:09 Triage completed. ab2 12:10 Arm band placed on right wrist. ab2 12:30 Bruce Samson PA is PHCP. cp 12:30 Tony Hernández MD is Attending Physician. cp 12:33 Latasha Greenberg, RN is Primary Nurse. aa5 12:40 Patient has correct armband on for positive identification. Placed in gown. Bed in low aa5 position. Call light in reach. Side rails up X 1. 13:04 Initial lab(s) drawn, by me, sent to lab. Inserted saline lock: 20 gauge in right aa5 antecubital area, using aseptic technique. Blood collected. 14:05 US Abdomen Limited: RUQ In Process Unspecified. EDMS 15:16 No provider procedures requiring assistance completed. IV discontinued, intact, aa5 bleeding controlled, No redness/swelling at site. Pressure dressing applied. Administered Medications: 15:16 Drug: Potassium Effervescent Tablet 50 mEq Route: PO; aa5 15:16 Follow up: Response: Medication administered at discharge. aa5 Outcome: 14:43 Discharge ordered by . cp 15:16 Discharged to home ambulatory. aa5 15:16 Condition: good 15:16 Discharge instructions given to patient, Instructed on discharge instructions, follow up and referral plans. Demonstrated understanding of instructions, follow-up care. 15:21 Patient left the ED. aa5 Signatures: Dispatcher [employer] [facility] Latasha Greenberg, RN RN aa5 Bruce Samson PA PA Twila Angel am2 Wilver Hinds ab2
[2021-08-15] MEDS ORDERED: POTASSIUM 25 MEQ EFFERV TAB ONE (15:11)
[2021-08-15 18:11] VITALS: BP 144/94; TEMP 98.8; O2SAT 100
== END 2021-08-15 15:21 | disposition home or self-care (01) ==
LOC: ER 11:50
DX: R10.9 Unspecified abdominal pain (principal); Z88.5 Allergy status to narcotic agent
CPT/HCPCS: 36415; 76705; 80053; 81003; 81015; 81025; 83690; 85025; 99284